=== PATIENT | female | born 1975 | race Caucasian/White ===

== ENCOUNTER 2019-08-06 19:30 | Emergency (ER) | payer OTHER ==
--- OUTSIDE RECORDS SUMMARY | 2019-08-06 19:58 | XMS REPORT | Continuity of Care Document ---
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/2018 Essential hypertension LAUREL Pascal Onset: 12/17/2018 Social History Type Date Description Comments Sex Unknown Tobacco Use Start: Unknown Quit 07/2014 ETOH Use Rarely consumed alcohol in the past Tobacco Use Start: Unknown End: Patient is a former smoker Quit Smoking Status Reviewed: 06/10/19 Patient is a former smoker Quit Allergies, Adverse Reactions, Alerts Description No Known Drug Allergies Medications Active Medications SIG Qnty Indications Ordering Date Provider Propranolol HCL ER 1 by mouth every 90caps I10 Uriel 06/10/2019 80mg day MD Zaida Caps ER 24HR Irbesartan-Hydrochloro 1 by mouth every 90tabs Uriel 06/10/2019 thiazide day MD Zaida 300-12.5mg Tablets Ramelteon 1 tab by mouth 30tabs G47.00 06/10/2019 8mg Tablets every night, 30 MD Zaida min before bedtime Hydrocodone-Acetaminop 1 tab by mouth 120tabs Uriel 10/13/2018 hen every 6-8 hours MD Zaida 5-325mg Tablets as needed for severe pain Topiramate 1 tab by mouth 90tabs Uriel 09/21/2012 25mg Tablets three times a MD Zaida day Metoclopramide HCL take 1 to 2 Unknown 5mg tablets by mouth Tablets four times a day if needed for nausea Buspirone HCL take 1 tablet by 90tabs Uriel 15mg mouth three MD Zaida Tablets times a day if needed for anxiety Nortriptyline HCL take 1 to 2 60caps Uriel 25mg capsules every MD Zaida Capsules evening for head pain History Medications Work Note Please excuse G43.009 Uriel Cerda, 12/17/2018 - from work till 03/15/2019 12/19/18 Propranolol HCL ER 1 by mouth 90caps I10 Uriel Cerda, 12/17/2018 - every day 06/10/2019 60mg Caps ER 24HR Immunizations Description No Information Available Vital Signs Date Vital Result Comment 06/10/2019 10:02am Height 66.5 inches 5'6.50" Weight 225.44 lb Heart Rate 72 /min BP Systolic Sitting 156 mmHg BP Diastolic Sitting 102 mmHg O2 % BldC Oximetry 98 % BMI (Body Mass Index) 35.8 kg/m2 12/17/2018 3:07pm Weight 233.25 lb Heart Rate 81 /min BP Systolic 138 mmHg BP Diastolic 100 mmHg O2 % BldC Oximetry 98 % Results Description No Information Available Procedures Date Code Description Status 11/30/2018 46511415 Mammogram Completed 01/02/2014 15040447 Colonoscopy Completed Medical Devices Description No Information Available Encounters Type Date Location Provider Dx Diagnosis Office Visit 12/17/2018 [facility] Thelma G43.009 Migraine w/o aura, 3:00p [place] not intractable, w/o status migrainosus I10 Essential (primary) hypertension E80.20 Unspecified porphyria Assessments Date Code Description Provider 06/10/2019 I10 Essential (primary) hypertension LAUREL Pascal 06/10/2019 E80.20 Unspecified porphyria LAUREL Pascal 06/10/2019 K02.9 Dental caries, unspecified Thelma Bhat, LAUREL 06/10/2019 G47.00 Insomnia, unspecified LAUREL Pascal 12/17/2018 G43.009 Migraine without aura, not intractable, LAUREL Pascal without status migra 12/17/2018 I10 Essential (primary) hypertension LAUREL Pascal 12/17/2018 E80.20 Unspecified porphyria LAUREL Pascal Plan of Treatment Future Appointment(s):07/12/2019 1:30 pm - LAUREL Pascal at [facility]06/10/2019 - Thelma Bhat PAI10 Essential (primary) hypertensionNew Medication:Propranolol HCL ER 80 mg - 1 by mouth every dayComments: UncontrolledRXs sent to new pharmacy ([facility])Adjust Propranolol ER to 80mg daily Modify to Irbesartan-HCT 300-12.5mg skufsR29.20 Unspecified porphyriaComments: Follows with Dr Zapien02.9 Dental caries, unspecifiedComments:Start Amoxicillin as prescribed by sivtyleE23.00 Insomnia, unspecifiedNew Medication: Ramelteon 8 mg - 1 tab by mouth every night, 30 min before bedtimeComments:With anxiety/stress Functional Status Description No Information Available Mental Status Description No Information Available Referrals Description No Information Available
--- OUTSIDE RECORDS SUMMARY | 2019-08-06 19:58 | XMS REPORT | Continuity of Care Document ---
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 Problems Active Problems Provider Date Migraine LAUREL Pascal Onset: 10/12/2018 Porphyria LAUREL Pascal Onset: 10/12/2018 Essential hypertension LAUREL Pascal Onset: 12/17/2018 Social History Type Date Description Comments Sex Unknown Tobacco Use Start: Unknown Quit 07/2014 ETOH Use Rarely consumed alcohol in the past Tobacco Use Start: Unknown End: Patient is a former smoker Quit Smoking Status Reviewed: 07/12/19 Patient is a former smoker Quit Allergies, Adverse Reactions, Alerts Description No Known Drug Allergies Medications Active Medications SIG Qnty Indications Ordering Provider Date Clindamycin HCL 3 caps by mouth Unknown 06/22/2019 150mg three times a Capsules day Propranolol HCL ER 1 by mouth every 90caps I10 Uriel 06/10/2019 80mg day MD Zaida Caps ER 24HR Irbesartan-Hydrochlor 1 by mouth every 90tabs 06/10/2019 othiazide day MD Zaida 300-12.5mg Tablets Ramelteon 1 tab by mouth 30tabs G47.00 Uriel 06/10/2019 8mg Tablets every night, 30 MD Zaida min before bedtime Hydrocodone-Acetamino 1 tab by mouth 120tabs Uriel 10/13/2018 phen every 6-8 hours MD Zaida 5-325mg Tablets as needed for severe pain Buspirone HCL take 1 tablet by 90tabs Uriel 15mg mouth three MD Zaida Tablets times a day if needed for anxiety Immunizations Description No Information Available Vital Signs Date Vital Result Comment 07/12/2019 1:40pm Height 66.5 inches 5'6.50" Weight 228.12 lb Heart Rate 68 /min BP Systolic Sitting 138 mmHg BP Diastolic Sitting 82 mmHg O2 % BldC Oximetry 98 % BMI (Body Mass Index) 36.3 kg/m2 06/10/2019 10:02am Height 66.5 inches 5'6.50" Weight 225.44 lb Heart Rate 72 /min BP Systolic Sitting 156 mmHg BP Diastolic Sitting 102 mmHg O2 % BldC Oximetry 98 % BMI (Body Mass Index) 35.8 kg/m2 Results Description No Information Available Procedures Date Code Description Status 11/30/2018 97920237 Mammogram Completed 01/02/2014 [id number] Colonoscopy Completed Medical Devices Description No Information Available Encounters Type Date Location Provider Dx Diagnosis Office Visit 06/10/2019 [facility] Thelma Bhat, [email or web address] Essential ( primary) 10:00a [place] hypertension E80.20 Unspecified porphyria G47.00 Insomnia, unspecified Z91.14 Patient's other noncompliance with medication regimen Assessments Date Code Description Provider 07/12/2019 I10 Essential (primary) hypertension Thelma Bhat, [place] 07/12/2019 G47.00 Insomnia, unspecified Thelma Bhat, [place] 06/10/2019 I10 Essential (primary) hypertension Thelma Bhat, [place] 06/10/2019 E80.20 Unspecified porphyria Thelma Bhat, [place] 06/10/2019 G47.00 Insomnia, unspecified Thelma [place], [place] 06/10/2019 Z91.14 Patient's other noncompliance with medication LAUREL Pascal regimen Plan of Treatment Future Appointment(s):10/11/2019 2:30 pm - LAUREL Pascal at [facility]07/12/2019 - LIBAN Pascal Essential (primary) hypertensionComments:Controlled with Propranolol ER to 80mg daily, Irbesartan- HCT 300-12.5mg dailyFollow up:3 [id number] Insomnia, unspecifiedComments:Okay to add Benadryl Functional Status Description No Information Available Mental Status Description No Information Available Referrals Description No Information Available
[2019-08-06 20:24] VITALS: BP 154/96
--- NOTE | 2019-08-06 20:27 | UC ---
FLU HPI - HPI Summary HPI Summary: 43-year-old female presenting with nasal congestion, sore throat, dry cough, fever, chills, loss of voice, and body aches that gradually worsened over the course of today. Denies shortness breath or wheezing. Normal appetite and fluid intake. Denies taking anything for symptom relief. - History of Current Complaint Chief Complaint: UCRespiratory Stated Complaint: SORE THROAT/BODY ACHES/HEADACHE/CHILLS Hx Obtained From: Patient Hx Last Menstrual Period: 12/27/15 Pain Intensity: 8 Pain Scale Used: 0-10 Numeric - Allergy/Home Medications Allergies/Adverse Reactions: Allergies Allergy/AdvReac Type Severity Reaction Status Date / Time No Known Allergies Allergy Verified 08/06/19 20:06 Home Medications: Home Medications Calcium Carbonate [Calcium] PO DAILY 08/06/19 [History] FLUoxetine CAP* [PROzac CAP*] 40 mg PO DAILY 08/06/19 [History Confirmed ] Irbesartan/Hydrochlor 150/12.5 [Irbesartan/Hydrochlorothi 150-12.5 mg] tab PO [History] Propranolol HCl [Propranolol HCl ER] 80 mg PO DAILY 08/06/19 [History Confirmed 08/06/19] Ramelteon 8 mg PO BEDTIME 08/06/19 [History Confirmed 08/06/19] Topiramate TAB(*) [Topamax 25 MG tab] 25 mg PO BEDTIME 08/06/19 [History Confirmed 08/06/19] busPIRone TAB* [Buspar TAB *] 15 mg PO TID PRN 08/06/19 [History Confirmed 08/06] PMH/Surg Hx/FS Hx/Imm Hx Cardiovascular History: Hypertension - Surgical History Surgical History: Yes Surgery Procedure, Year, and Place: L foot extra bone age 7yrs. B/L hernia repairs at ages 13 and 15 yrs. wisdom teeth extraction at age 8yrs. Cervical neck surgery 2012. hysterectomy. partial thyroidectomy - Family History Known Family History: Positive: None - Social History Alcohol Use: None Substance Use Type: None Smoking Status (MU): Former Smoker When Did the Patient Quit Smoking/Using Tobacco: 07/2014 Review of Systems All Other Systems Reviewed And Are Negative: Yes Constitutional: Positive: Fever, Chills, Fatigue ENT: Positive: Sore Throat, Sinus Congestion, Other - loss of voice. Negative: Ear Ache Respiratory: Positive: Cough - nonproductive. Negative: Shortness Of Breath Cardiovascular: Positive: Negative Gastrointestinal: Positive: Negative. Negative: Abdominal Pain, Vomiting, Nausea Musculoskeletal: Positive: Myalgia Neurological: Positive: Headache Physical Exam Triage Information Reviewed: Yes Appearance: No Pain Distress, Ill-Appearing Vital Signs: Initial Vital Signs Temp 99 F 08/06/19 20:13 Pulse 74 08/06/19 20:13 Resp 14 08/06/19 20:13 BP 154/96 08/06/19 20:13 Pulse Ox 99 08/06/19 20:13 Lab Results 08/06/19 08/06/19 Range/Units 20:31 20:33 Influenza A (Rapid) Negative (Negative) Influenza B (Rapid) Negative (Negative) Group A Strep Rapid Negative (Negative) Vital Signs Reviewed: Yes Eyes: Positive: Conjunctiva Clear ENT: Positive: Hearing grossly normal, Pharyngeal erythema, Nasal congestion, TMs normal, Muffled voice, Uvula midline. Negative: Nasal drainage, Tonsillar swelling, Tonsillar exudate, Trismus Neck exam: Normal Neck: Positive: Supple, No Lymphadenopathy, Tenderness @ - tonsilar nodes Respiratory Exam: Normal Respiratory: Positive: Lungs clear, Normal breath sounds, No respiratory distress. Negative: Crackles, Rhonchi, Stridor, Wheezing Cardiovascular Exam: Normal Cardiovascular: Positive: RRR, No Murmur. Negative: Tachycardia Neurological: Positive: Alert Psychological: Positive: Age Appropriate Behavior Skin Exam: Normal Flu Course/Dx - Course Course Of Treatment: Rapid strep negative and flu tests. Educated on viral illness and symptomatic treatment. Instructed to follow up with pcp if symptoms persist or worsen. Patient voiced understanding and agreed with treatment plan. - Differential Dx/Diagnosis Differential Diagnosis/HQI/PQRI: Influenza, Upper Respiratory Infection Provider Diagnosis: Flu-like symptoms Discharge ED - Sign-Out/Discharge Documenting (check all that apply): Patient Departure All imaging exams completed and their final reports reviewed: No Studies - Discharge Plan Condition: Stable Disposition: HOME Patient Education Materials: Viral Syndrome (ED) Referrals: Thelma Bhat PA [Primary Care Provider] - If Needed Additional Instructions: As discussed, your rapid flu test was negative today. Your symptoms are most likely caused by a virus and should resolve without treatment. You may continue to take over the counter cough and cold medications for your cold symptoms. You may use nasal saline spray as directed for symptomatic relief. You may take ibuprofen and/or tylenol as directed for pain relief. Get plenty of rest and increase your fluid intake. Follow up with your primary care doctor if your symptoms worsen or do not resolve within 7 days. - Billing Disposition and Condition Condition: STABLE Disposition: Home
[2019-08-06] MEDS ORDERED: Ibuprofen TAB* 600 MG PO ONE (20:36)
[2019-08-06 20:44] LABS: Influenza A Molecular NEGATIVE (Negative); Influenza B Molecular NEGATIVE (Negative)
== END 2019-08-06 21:06 | disposition home or self-care (01) ==
LOC: UCCORT 19:30
DX: J02.9 Acute pharyngitis, unspecified (principal); R09.81 Nasal congestion; R05 Cough; R50.9 Fever, unspecified; M79.10 Myalgia, unspecified site; R53.83 Other fatigue; R51 Headache; I10 Essential (primary) hypertension; Z79.899 Other long term (current) drug therapy; Z87.891 Personal history of nicotine dependence
CPT/HCPCS: 87651; 99212; A9270-GY; G0463